=== PATIENT | female | born 1985 | race Caucasian/White ===

== ENCOUNTER → 2016-10-09 | Outpatient (CLI) | payer SELFPAY ==
[~2016-10-09] MED LIST: COLACE-DPS100 MG PO; MOTRIN-DPS800 MG PO; NIPPLECREAM TP; PRENATAL VIT1 TAB PO; TYLENOL #3 DPS1 TAB PO
== END | disposition home or self-care (01) ==
LOC: RAD.S 10-07 10:15
DX: M25.512 Pain in left shoulder (principal)

== ENCOUNTER → 2016-10-24 | Outpatient (CLI) | payer SELFPAY | END | disposition home or self-care (01) | LOC: RAD.S 10:51 | DX: M25.512 Pain in left shoulder (principal); G89.29 Other chronic pain ==